=== PATIENT | female | born 1995 | race Caucasian/White ===

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

== ENCOUNTER 2017-04-06 00:45 | Emergency (ER) | payer OTHER, SELFPAY ==
[~2017-04-06] VITALS: Ht 175.3 cm; Wt 63.5 kg
[~2017-04-06 00:45] MED LIST: HYDROCODON-ACE1 EA11 PO
== END 2017-04-06 05:05 | disposition home or self-care (01) ==
LOC: ED 00:45
DX: T14.91XA Suicide attempt, initial encounter (principal); X83.8XXA Intentional self-harm by other specified means, initial encounter
CPT/HCPCS: 80053; 80176; 81001; 84443; 84703; 85025; 96360; 96361; 99284; G0480; J7030